=== PATIENT | female | born 1955 | race Caucasian/White ===

== ENCOUNTER 2016-12-09 13:03 | Emergency (ER) | payer BC | END 2016-12-09 15:44 | disposition left against medical advice (07) | LOC: UCCORT 13:03 | DX: Z53.21 Procedure and treatment not carried out due to patient leaving prior to being seen by health care provider (principal) ==

== ENCOUNTER 2017-01-17 06:00 | Inpatient (IN) | payer BC ==
--- NOTE | 2017-01-12 11:15 | HP ---
PREOPERATIVE HISTORY AND PHYSICAL: DATE OF ADMISSION/SURGERY: 01/17/17 DATE OF OFFICE VISIT: 01/11/17 ATTENDING PHYSICIAN: Regine Guzman MD PROCEDURE: Right total shoulder reverse versus total shoulder replacement. CHIEF COMPLAINT: Right shoulder pain. HISTORY OF PRESENT ILLNESS: Ms. Urbano is a 61-year-old female who presents to the clinic for ongoi ng right shoulder pain x2 years. She has a constant diffuse ache in her right arm. She has failed conservative measures and has therefore agreed to undergo a right total reverse versus total shoulde r replacement with Dr. Guzman on 01/17/17. PAST MEDICAL HISTORY: 1. Hypertension. 2. Back pain. 3. Obesity. 4. Diabetes type 2. 5. COPD. 6. Psoriasis. 7. Restless leg syndrome. 8. MRSA. 9. Thyroid disease. PAST SURGICAL HISTORY: 1. Tubal ligation. 2. Tonsillectomy. 3. [place] teeth removal. 4. Bladder sling. 5. Two feet operations. The patient denies complications with anesthesia. MEDICATIONS: 1. Gabapentin 600 mg 1 by mouth 3 times a day. 2. Ventolin HFA 100 in a 90 base mcg per ACT as needed. 3. Atorvastatin 40 mg 1 by mouth at bedtime. 4. Ropinirole HC1 1 mg 1 by mouth 2 times a day. 5. Losartan potassium/hydrochlorothiazide 50/12.5 mg 1 by mouth twice a day. 6. Levothyroxine sodium 100 mcg 1 tablet daily on an empty stomach. 7. Paroxetine HC1 20 mg 1 tab by mouth every day. 8. Montelukast sodium 10 mg 1 by mouth at bedtime. ALLERGIES: DIFLUCAN, NEOSPORIN, MYCOSTATIN, NYSTATIN. SOCIAL HISTORY: She is a retired nurse. She lives with her . She is a former smoker, quit last year, smokes 1 pack per day x30 years. She denies alcohol use. REVIEW OF SYSTEMS: A 14-point review of systems was reviewed with the patient, found to be positive for hypertension, hypothyroidism, diabetes type 2, back pain and right shoulder pain, otherwise neg ative. Denies chest pain, shortness of breath, bleeding disorders, or history of DVT or PE. PHYSICAL EXAMINATION GENERAL: A well-developed, well-nourished 61-year-old female, in no acute distress. VITAL SIGNS: Height 68, weight 320, pulse 97, blood pressure 138/80, respiratory rate 16, temperatu re 96.4, BMI 33.4. HEENT: Normocephalic, atraumatic. Throat clear. NECK: Supple. PULMONARY: Lungs clear to auscultation bilaterally. No wheezing, rhonchi or rales. CARDIO: Regular rate and rhythm. S1, S2. No murmurs, gallops or rubs. ABDOMEN: Positive bowel sounds. Soft, nontender. NEUROLOGIC: Alert and oriented x3. Cranial nerves grossly intact. Sensation intact to light touch distally. MUSCULOSKELETAL: Right upper extremity skin is intact. No obvious deformity of the shoulder. Tende r to palpation of the proximal biceps in the anterior joint line. Pseudoparalysis of the right shoul meir due to pain. Forward flexion to 10 degrees, abduction and 10 degrees, no external or internal r otation. Rotator cuff testing was avoided due to pain; +2 radial pulse. Sensation intact to light touch distally. STUDIES: Multiple view x-rays of the right shoulder reveal severe bone on bone arthritis. IMPRESSION: Severe right shoulder osteoarthritis and pseudoparalysis. PLAN: The patient was cleared by her PCP. She is scheduled to undergo a right total shoulder rever se versus total shoulder replacement with Dr. Guzman on 01/17/17. She will return to the office 10 to 14 days postoperative for followup and suture removal. Percocet was e-prescribed to the patient' s pharmacy for postoperative pain management. BILL LAINEZ [id number]/[facility] #: [id number]
[~2017-01-17 06:00] MED LIST: Buffered Lidocaine 1% SYRIN* 3 ML/SYR SYRINGE INTRADERM ONE; Famotidine IV* 10 MG/ML 2 ML (20 mg) IV ONE
[2017-01-17] MEDS ORDERED: Famotidine IV* 10 MG/ML 2 ML (20 mg) ONE (06:14)
[2017-01-17] MEDS ORDERED: Levalbuterol 1.25MG/0.5ML NEB ONE ×4 (06:15→12:41)
[2017-01-17] MEDS ORDERED: ceFAZolin 2 GM PREMIX(*) 2 GM/50 ML BAG IVPB ONE (06:15)
[2017-01-17] MEDS ORDERED: Levalbuterol 0.63MG/3ML NEB INH ONE ×2 (06:35→12:08)
[2017-01-17] MEDS ORDERED: fentaNYL* 50 MCG/ML 5 ML VIAL (250 MCG VIAL) ONE (07:30)
[2017-01-17] MEDS ORDERED: Midazolam* 1 MG/ML 5 ML VIAL (5 MG) ONE (07:30)
[2017-01-17] MEDS ORDERED: Propofol* 10 MG/ML 20 ML BTL IV PUSH ONE (08:41)
[2017-01-17] MEDS ORDERED: Lidocaine 2% PF* 5 ML VIAL ONE (08:41)
[2017-01-17] MEDS ORDERED: Ketorolac INJ* 30 MG/ML 1 ML VIAL ONE (08:41)
[2017-01-17] MEDS ORDERED: Ondansetron INJ* 2 MG/ML VIAL ONE (08:41)
[2017-01-17] MEDS ORDERED: Phenylephrine IV* 40 MCG/ML 10 ML SYRINGE ONE (08:42)
[2017-01-17] MEDS ORDERED: Succinylcholine* 20 MG/ML 10 ML VIAL ONE (08:42)
[2017-01-17] MEDS ORDERED: Phenylephrine INJ* 10 MG/ML 1 ML VIAL (10 MG) ONE (08:43)
[2017-01-17] MEDS ORDERED: Dexamethasone IV* 4 MG/ML 1 ML (4 MG) ONE (08:47)
[2017-01-17] MEDS ORDERED: DiMENhydriNATE IV* 50 MG/ML VIAL IV PUSH PRN (09:19)
[2017-01-17] MEDS ORDERED: Levalbuterol 0.63MG/3ML NEB INH PRN (09:19)
[2017-01-17] MEDS ORDERED: oxyCODONE/Acetamin 5/325 MG* TAB PO PRN ×2 (09:19→11:29)
[2017-01-17] MEDS ORDERED: HYDROmorphone* 1 MG/ML 1 ML SYR IV PRN (09:19)
[2017-01-17] MEDS ORDERED: Ondansetron INJ* 2 MG/ML VIAL IV PRN (11:29)
[2017-01-17] MEDS ORDERED: traZODone TAB* 50 MG TAB PO PRN (11:29)
[2017-01-17] MEDS ORDERED: Acetaminophen TAB* 325 MG PO PRN (11:29)
[2017-01-17] MEDS ORDERED: diPHENhydraMINE IV* 50 MG/ML 1 ml VIAL (BENADRYL) IV PRN (11:29)
[2017-01-17] MEDS ORDERED: Albuterol/Ipratropium NEB.SOL* Albuterol 2.5 MG/Ipratropium 0.5 MG 3 ML INH PRN (11:36)
[2017-01-17] MEDS ORDERED: ROPIVACAINE 5 MG/ML 30 ML BTL (0.5%) ONE (12:30)
--- NOTE | 2017-01-17 13:22 | RAD ---
INDICATION: Right shoulder replacement surgery postoperative exam. TECHNIQUE: 3 views of the right shoulder were obtained. FINDINGS: The patient is status post total right shoulder replacement surgery with a reversed polarity prosthesis. The bones and prostheses are in normal alignment. There is a surgical drain present anterolaterally. IMPRESSION: STATUS POST TOTAL RIGHT SHOULDER REPLACEMENT SURGERY.
[2017-01-17] MEDS ORDERED: Ibuprofen TAB* 400 MG PO ONE (15:00)
[2017-01-17] MEDS: Gabapentin CAP(*) 300 MG PO SCH ×2 (15:33→20:44)
[2017-01-17] MEDS: ceFAZolin 1 GM in Dextrose (*) 1 GM/50 ML BAG IVPB SCH (17:06)
[2017-01-17] MEDS: Enoxaparin(*) 30 MG/0.3 ML SYR SUBCUT SCH (17:07)
[2017-01-17] MEDS: Losartan TAB* 25 MG PO SCH (20:44)
[2017-01-17] MEDS: Docusate CAP* 100 MG PO SCH (20:44)
[2017-01-17] MEDS: oxyCODONE/Acetamin 5/325 MG* TAB PO PRN (20:44)
[2017-01-17] MEDS: Hydrochlorothiazide TAB* 25 MG PO SCH (20:44)
[2017-01-17] MEDS: FORMOTE INH SCH (20:45)
[2017-01-17] MEDS: BUDESONIDE INH SCH (20:45)
[2017-01-17] MEDS: MDI INH SCH (20:45)
[2017-01-18] MEDS: oxyCODONE/Acetamin 5/325 MG* TAB PO PRN ×4 (00:37→20:54)
[2017-01-18] MEDS: ceFAZolin 1 GM in Dextrose (*) 1 GM/50 ML BAG IVPB SCH ×2 (00:38→09:17)
[2017-01-18] MEDS: Morphine INJ* 2 MG/ML 1 ML SYRINGE IV PRN ×3 (04:35→13:57)
[2017-01-18] MEDS: Levothyroxine TAB* 100 MCG TAB PO SCH (05:48)
[2017-01-18 07:26] LABS: Hematocrit 34 % (35-47); Hemoglobin 11.3 g/dl (12.0-16.0)
[2017-01-18 07:54] LABS: BUN/Creatinine Ratio 12.1 (8-20); Calcium 8.8 mg/dL (8.6-10.3); EGFR African American 136.4 (>60); Potassium 3.9 mmol/L (3.5-5.0)
--- NOTE | 2017-01-18 08:57 | PN ---
Progress Note - Progress Note SOAP: Subjective: []Patient seen OOB in chair. Weepy due to right shoulder pain. "I still want to go home today." Would like to add Motrin TID. Objective: [] Vital Signs Temp 97.5 F 01/18/17 07:32 Pulse 92 01/18/17 07:32 Resp 16 01/18/17 07:35 BP 129/62 01/18/17 07:32 Pulse Ox 99 01/18/17 07:35 Intake & Output 01/17/17 01/18/17 01/18/17 18:59 06:59 18:59 Intake Total 2830 3846 Output Total 100 3325 Balance 2730 521 Intake: IV Fluids 2500 1881 LR 2500 1881 IVPB 105 Kefzol 105 Oral 330 1860 Output: Urine 100 1500 Rasmussen 1825 Other: Estimated Blood Loss 100 Comment Laboratory Results - last 24 hr 01/17/17 01/17/17 01/17/17 11:54 17:51 21:21 Hgb Hct Sodium Potassium Chloride Carbon Dioxide Anion Gap BUN Creatinine Est GFR ( Amer) Est GFR (Non-Af Amer) BUN/Creatinine Ratio Glucose POC Glucose (mg/dL) 195 H 218 H 160 H Calcium 01/18/17 01/18/17 07:06 07:06 Hgb 11.3 L Hct 34 L Sodium 139 Potassium 3.9 Chloride 103 Carbon Dioxide 31 Anion Gap 5 BUN 7 Creatinine 0.58 Est GFR ( Amer) 136.4 Est GFR (Non-Af Amer) 106.0 BUN/Creatinine Ratio 12.1 Glucose 95 POC Glucose (mg/dL) Calcium 8.8 Sling donned, Cryo on Right shoulder dressings are intact and dry Hemovac drain removed without difficulty, tip intact ~150cc blood in canister pressure dressing and new tegaderm applied to drain site moving all digits will, sensation intact RUE Assessment: []s/p right reverse total shoulder arthroplasty POD #1 Plan: []Add Motrin TID Abduction and forward elevation to 90 degrees, ER to ~40 degrees. Home later today Follow up with Dr. Guzman in 10-14 days
[2017-01-18] MEDS ORDERED: Spiriva Inhaler DEVICE* 1 EACH DEVICE INH ONE (09:00)
[2017-01-18] MEDS ORDERED: Ibuprofen TAB* 800 MG PO PRN (09:08)
[2017-01-18] MEDS ORDERED: Ibuprofen TAB* 800 MG PO ONE (09:15)
[2017-01-18] MEDS: Losartan TAB* 25 MG PO SCH ×2 (09:40→21:38)
[2017-01-18] MEDS: Omeprazole CAP* 20 MG PO SCH (09:40)
[2017-01-18] MEDS: Vitamin THERAPEUTIC TAB PO SCH (09:40)
[2017-01-18] MEDS: Atorvastatin* 10 MG TAB PO SCH (09:40)
[2017-01-18] MEDS: Montelukast Sodium TAB* 10 MG PO SCH (09:40)
[2017-01-18] MEDS: Docusate CAP* 100 MG PO SCH ×2 (09:41→21:39)
[2017-01-18] MEDS: Tiotropium CAP.INH* CAP.INH/18 MCG INH SCH (09:41)
[2017-01-18] MEDS: PARoxetine HCL TAB* 20 MG PO SCH (09:41)
[2017-01-18] MEDS: Hydrochlorothiazide TAB* 25 MG PO SCH ×2 (09:41→21:39)
[2017-01-18] MEDS: Gabapentin CAP(*) 300 MG PO SCH ×3 (09:41→21:38)
[2017-01-18] MEDS: FORMOTE INH SCH ×2 (09:47→21:29)
[2017-01-18] MEDS: BUDESONIDE INH SCH ×2 (09:47→21:29)
[2017-01-18] MEDS: MDI INH SCH ×2 (09:47→21:29)
--- NOTE | 2017-01-18 10:13 | PN ---
Progress Note - Progress Note Note: Patient seen again this morning after nurse reported that patient complained of numbness right hand. Patient still weepy and still having moderate to severe shoulder pain. O: Patient now lying in bed, sling donned Actively moving all digits no finger edema + radial pulse full sensation all digits and dorsum of hand A/P: Recommend that patient stay until tomorrow if her pain continues to be significant. She is in agreement. If there is significant improvement this afternoon still may be discharged, otherwise d/c tomorrow. Will add Torodol as well.
[2017-01-18] MEDS: oxyCODONE TAB* 5 MG TAB PO PRN ×2 (11:03→17:07)
--- NOTE | 2017-01-18 16:04 | PN ---
Progress Note - Progress Note Note: Seen post op at 4:30 pm 01/17/17 Pt comfortable but sleepy. Sling and dressing in place. Some discomfort along the incision but not uncomfortable with range of motion. Sensation muted due to block. Xrays reviewed and acceptable. Anticipate discharge in the next day or 2. labs to be checked in AM. heparin while in house.
[2017-01-18] MEDS: Ketorolac INJ* 15 MG/ML 1 ML VIAL IV PUSH PRN ×2 (17:07→23:05)
[2017-01-18] MEDS: Enoxaparin(*) 30 MG/0.3 ML SYR SUBCUT SCH (17:12)
[2017-01-19] MEDS: oxyCODONE TAB* 5 MG TAB PO PRN ×2 (00:26→12:07)
[2017-01-19] MEDS: oxyCODONE/Acetamin 5/325 MG* TAB PO PRN ×2 (04:23→08:26)
[2017-01-19] MEDS: Ketorolac INJ* 15 MG/ML 1 ML VIAL IV PUSH PRN ×2 (05:38→12:07)
[2017-01-19] MEDS: Levothyroxine TAB* 100 MCG TAB PO SCH (05:38)
[2017-01-19 06:25] LABS: Mean Platelet Volume 8 um3 (7.4-10.4)
[2017-01-19] MEDS: BUDESONIDE INH SCH (08:24)
[2017-01-19] MEDS: MDI INH SCH (08:24)
[2017-01-19] MEDS: FORMOTE INH SCH (08:24)
[2017-01-19] MEDS: Hydrochlorothiazide TAB* 25 MG PO SCH (08:25)
[2017-01-19] MEDS: Atorvastatin* 10 MG TAB PO SCH (08:25)
[2017-01-19] MEDS: Losartan TAB* 25 MG PO SCH (08:25)
[2017-01-19] MEDS: Montelukast Sodium TAB* 10 MG PO SCH (08:25)
[2017-01-19] MEDS: PARoxetine HCL TAB* 20 MG PO SCH (08:26)
[2017-01-19] MEDS: Omeprazole CAP* 20 MG PO SCH (08:26)
[2017-01-19] MEDS: Docusate CAP* 100 MG PO SCH (08:26)
[2017-01-19] MEDS: Gabapentin CAP(*) 300 MG PO SCH (08:26)
[2017-01-19] MEDS: Vitamin THERAPEUTIC TAB PO SCH (08:26)
[2017-01-19] MEDS: Tiotropium CAP.INH* CAP.INH/18 MCG INH SCH (08:27)
--- NOTE | 2017-01-19 11:16 | PN ---
Progress Note - Progress Note SOAP: Subjective: [61 y/o female s/p right reverse total shoulder arthroplasty POD #2. Patient reports pain better controlled, eating well. VSS overnight. Eager for DC. working well with PT. ] Objective: [GEneral: Well appearing, NAD AOx3 MSK- surgical dressing intact, no drainage noted on gauze, no erythema noted around surgical sites. ulnar, radial pulses 2+ b/l UE's, sensation to light touch intact R UE, + emt/paramedic strength, 4/5 RUE, 5/5 LUE. cap refill <2 seconds RUE. Vital Signs Temp 98.0 F 01/19/17 08:06 Pulse 104 01/19/17 08:06 Resp 18 01/19/17 10:26 BP 118/40 01/19/17 08:06 Pulse Ox 93 01/19/17 10:00 Intake & Output 01/18/17 01/19/17 01/19/17 18:59 06:59 18:59 Intake Total 1018 1630 560 Output Total 1295 Balance -277 1630 560 Intake: IV Fluids 643 0 LR 643 0 IVPB 55 Kefzol 55 Oral 320 1630 560 Output: Urine 300 Rasmussen 995 Other: Estimated Void Medium # Voids 1 Laboratory Results - last 24 hr 01/18/17 01/18/17 01/19/17 11:27 21:37 05:50 Plt Count 215 MPV 8 POC Glucose (mg/dL) 128 H 149 H 01/19/17 08:43 Plt Count MPV POC Glucose (mg/dL) 189 H ] Assessment: [61 y/o female s/p right reverse total shoulder arthroplasty POD #2.] Plan: [- DC to home today , follow up with DR. Guzman within 10-14 days for suture removal and examination - Continue PT as shown with restrictions as reviewed. - Oxycodone for pain control. Active Medications Generic Name Dose Route Start Last Admin Trade Name Freq PRN Reason Stop Dose Admin Acetaminophen 650 mg 01/17/17 11:29 Tylenol Tab* PO Q4H PRN PAIN OR TEMPERATURE Albuterol/Ipratropium 1 neb 01/17/17 11:36 01/17/17 11:40 Duoneb (Albuterol 2.5 Mg/Ipratropium 0.5 Mg) INH 1 neb Q6H PRN Administration SHORTNESS OF BREATH Atorvastatin Calcium 10 mg 01/18/17 09:00 01/19/17 08:25 Lipitor* PO 10 mg DAILY DARREL Administration Protocol Budesonide/Formoterol Fumarate 2 puff 01/17/17 21:00 01/19/17 08:24 Symbicort 160/4.5 (Nf) INH 2 puff BID DARREL Administration Protocol Diphenhydramine HCl 25 mg 01/17/17 11:29 Benadryl Iv* IV Q6H PRN itching Docusate Sodium 100 mg 01/17/17 21:00 01/19/17 08:26 Colace Cap* PO 100 mg BID DARREL Administration Enoxaparin Sodium 30 mg 01/17/17 17:00 01/18/17 17:12 Lovenox(*) SUBCUT 30 mg Q24H DARREL Administration Gabapentin 600 mg 01/17/17 14:00 01/19/17 08:26 Neurontin Cap(*) PO 600 mg TID DARREL Administration Hydrochlorothiazide 12.5 mg 01/17/17 21:00 01/19/17 08:25 Hydrodiuril Tab* PO 12.5 mg BID DARREL Administration Lactated Ringer's 1,000 mls @ 125 mls/hr 01/17/17 06:00 01/18/17 05:50 Lactated Ringers 1000 Ml Bag* IV 125 mls/hr PER RATE DARREL Administration Ibuprofen 800 mg 01/18/17 09:08 Motrin Tab* PO Q8H PRN PAIN Ketorolac Tromethamine 15 mg 01/18/17 10:13 01/19/17 05:38 Toradol Inj* IV PUSH 15 mg Q6H PRN Administration PAIN Levothyroxine Sodium 100 mcg 01/18/17 06:00 01/19/17 05:38 Synthroid Tab* PO 100 mcg 0600 DARREL Administration Losartan Potassium 50 mg 01/17/17 21:00 01/19/17 08:25 Cozaar Tab* PO 50 mg BID DARREL Administration Montelukast Sodium 10 mg 01/18/17 09:00 01/19/17 08:25 Singulair Tab* PO 10 mg DAILY DARREL Administration Morphine Sulfate 2 mg 01/17/17 11:29 01/18/17 13:57 Morphine Inj (Syringe)* IV 2 mg Q2H PRN Administration PAIN Multivitamins 1 tab 01/18/17 09:00 01/19/17 08:26 Theragran Tab* PO 1 tab DAILY DARREL Administration Omeprazole 20 mg 01/18/17 09:00 01/19/17 08:26 Prilosec Cap* PO 20 mg DAILY DARREL Administration Protocol Ondansetron HCl 4 mg 01/17/17 11:29 Zofran Inj* IV Q6H PRN nausea Oxycodone HCl 10 mg 01/17/17 11:29 01/19/17 00:26 Roxycodone Tab* PO 10 mg Q4H PRN Administration PAIN Oxycodone/Acetaminophen 1 tab 01/17/17 11:29 Percocet 5/325 Tab* PO Q3H PRN PAIN - MODERATE Oxycodone/Acetaminophen 2 tab 01/17/17 11:29 01/19/17 08:26 Percocet 5/325 Tab* PO 2 tab Q3H PRN Administration PAIN - MODERATE Paroxetine HCl 20 mg 01/18/17 09:00 01/19/17 08:26 Paxil Tab* PO 20 mg DAILY DARREL Administration Tiotropium [place] 1 cap 01/18/17 09:00 01/19/17 08:27 Spiriva Cap.Inh* INH 1 cap DAILY DARREL Administration Trazodone HCl 25 mg 01/17/17 11:29 Desyrel Tab* PO BEDTIME PRN insomnia ]
[2017-01-19 12:35] VITALS: BP 115/60
--- NOTE | 2017-01-20 02:44 | DS ---
DISCHARGE SUMMARY: DATE OF ADMISSION: 01/17/17 DATE OF DISCHARGE: 01/19/17 PROCEDURE: Right total shoulder replacement. CHIEF COMPLAINT: 1. Right shoulder pain. 2. Hypertension. 3. Back pain. 4. Obesity. 5. Diabetes type 2. 6. COPD. 7. Psoriasis. 8. Restless leg syndrome. 9. History of MRSA. 10. Thyroid disease. DISCHARGE DIAGNOSES: 1. Status post right total shoulder replacement. 2. Hypertension. 3. Back pain. 4. Obesity. 5. Diabetes type 2. 6. Chronic obstructive pulmonary disease. 7. Psoriasis. 8. Restless leg syndrome. 9. MRSA. 10. Thyroid disease. BRIEF HISTORY: Ms. Urbano is a very pleasant 61-year-old female with complaint of right shoulder pa in x2 years, has failed conservative treatment, and has elected to undergo a right total shoulder re placement on 01/17/[address] Guzman. HOSPITAL COURSE: The patient was admitted to [facility] on 01/17/17 where she underwent a right total shoulder replacement. Postoperatively, she recovered in the surgical short stay unit. By postoperative day 1, her pain was still uncontrolled. However, by postoperative day 2, she was tolerating Percocet and oxycodone for adequate pain control. She was restarted on her home medicat ions. Her labs and vital signs remained stable. She worked well with Physical Therapy and Occupati onal Therapy. PHYSICAL EXAMINATION: General: Well appearing, in no acute distress. Alert and oriented. Vital s igns on the day of discharge: Temperature 98.0, pulse of 104, respirations 18, blood pressure 118/4 0, and pulse oxygenation 93% on room air. Examination of the right upper extremity shows that the garcia rgical dressing is intact with no drainage noted on the gauze. No erythema noted around the surgica l sites. The ulnar and radial pulses were 2+, bilateral upper extremities. Sensation to light touch intact over the right upper extremity. Positive departmental secretary strength, 4/5 in the right upper extremity an d 5/5 in the left upper extremity. Capillary refill in the right upper extremity is less than 2 sec onds. DISCHARGE MEDICATIONS: 1. Albuterol nebulizer 1 neb q.6 hours p.r.n. 2. Pravastatin 40 mg p.o. 1 tablet daily. 3. Symbicort 2 puffs p.o. b.i.d. 4. Colace 100 mg p.o. b.i.d. 5. Gabapentin 600 mg p.o. t.i.d. 6. Ibuprofen 800 mg p.o. q.8 hours p.r.n. 7. Synthroid 100 mcg p.o. daily. 8. Losartan 50/12.5 one tablet p.o. b.i.d. 9. Singulair 10 mg p.o. 1 tablet daily. 10. Prevacid 20 mg p.o. daily. 11. Paxil 20 mg 1 tablet daily. 12. Spiriva inhaler daily. 13. Oxycodone 5 mg tablets 1 to 2 tablets q.4 hours p.r.n. pain. CONDITION ON DISCHARGE: Stable. DISCHARGE INSTRUCTIONS: Ms. Urbano is a very pleasant 61-year-old female, status post right total s houlder replacement, postoperative day 2 which was uncomplicated. She was orthopedically and medical ly stable for discharge to go home. Her labs and vital signs are stable. She will restart her home medications. She will continue to do physical therapy as shown in the hospital. She will follow u p with Dr. Guzman in approximately 10 to 14 days for incision check and suture removal. She was ins tructed to go immediately to the ER should she develop chest pain or shortness of breath. Should sh e develop fever, increasing pain, or redness, she is to call the office immediately. BILL STACY [id number]/[facility] #: [id number]
== END 2017-01-19 13:25 | disposition home or self-care (01) | DRG 315 ==
LOC: AA 06:00 → SSU 14:28
PROVIDERS: ADMIT Orthopaedic Surgery; ATTEND Orthopaedic Surgery
PROC: 0RRJ00Z Replacement of Right Shoulder Joint with Reverse Ball and Socket Synthetic Substitute, Open Approach (ICD-10-PCS; principal; 2017-01-17 07:30)
DX: M19.011 Primary osteoarthritis, right shoulder (principal); I10 Essential (primary) hypertension; E05.90 Thyrotoxicosis, unspecified without thyrotoxic crisis or storm; E66.9 Obesity, unspecified; E11.9 Type 2 diabetes mellitus without complications; J44.9 Chronic obstructive pulmonary disease, unspecified; L40.9 Psoriasis, unspecified; G25.81 Restless legs syndrome; Z86.14 Personal history of Methicillin resistant Staphylococcus aureus infection; Z98.51 Tubal ligation status; Z88.8 Allergy status to other drugs, medicaments and biological substances; Z83.3 Family history of diabetes mellitus; Z83.49 Family history of other endocrine, nutritional and metabolic diseases; Z87.891 Personal history of nicotine dependence; Z68.33 Body mass index [BMI] 33.0-33.9, adult; R29.818 Other symptoms and signs involving the nervous system; K21.9 Gastro-esophageal reflux disease without esophagitis; M54.9 Dorsalgia, unspecified
CPT/HCPCS: 36415; 80048; 85014; 85018; 85049; 86850; 86900; 86901; 87070; 87205; 87641; 93005; 94760; A9270-GY; C1713; C1776; J0330; J0690; J1100; J1650; J1885; J2250; J2270; J2405; J2704; J2795; J3010